=== PATIENT | male | born 1995 | race Native Hawaiian/Other Pacific Islander ===

== ENCOUNTER 2018-08-16 17:16 | Emergency (ER) | payer OTHER ==
[~2018-08-16] VITALS: Ht 182.9 cm; Wt 65.8 kg
[2018-08-16 17:20] VITALS: BP 139/77; TEMP 99.9
== END 2018-08-16 18:01 | disposition home or self-care (01) ==
LOC: ED 17:16
DX: M00.062 Staphylococcal arthritis, left knee (principal)
CPT/HCPCS: 99282

== ENCOUNTER 2018-09-26 17:20 | Emergency (ER) | payer OTHER ==
[~2018-09-26] VITALS: Ht 182.9 cm; Wt 65.8 kg
[2018-09-26 19:25] VITALS: BP 125/76; TEMP 98.1
== END 2018-09-26 19:25 | disposition home or self-care (01) ==
LOC: ED 17:20
PROC: 0HQ0XZZ Repair Scalp Skin, External Approach (ICD-10-PCS; principal; 2018-09-26)
DX: S01.91XA Laceration without foreign body of unspecified part of head, initial encounter (principal); S00.93XA Contusion of unspecified part of head, initial encounter; W22.8XXA Striking against or struck by other objects, initial encounter
CPT/HCPCS: 99283